=== PATIENT | female | born 1960 | race Two or more races ===

== ENCOUNTER → 2016-10-11 | Outpatient (CLI) | payer OTHER ==
--- NOTE | 2016-10-11 18:21 | RADRPT ---
PROCEDURE: Right knee radiographs. CLINICAL INDICATION: Right knee pain. TECHNIQUE: Three views. Weight bearing. Frontal, lateral, and patellar view. COMPARISON: No prior studies are available for comparison. FINDINGS: There is no fracture or dislocation. The soft tissues are normal. There are degenerative changes with medial joint compartment narrowing and osteophytes. There is no lytic or blastic lesion. There is no radiopaque foreign body. IMPRESSION: 1. Moderate degenerative changes of the right knee. RPTAT: QQ .Chapin Causey MD, MD Date Time Electronically viewed and signed by .Chapin Causey MD, MD on 10/11/2016 18:21 .R/
--- NOTE | 2016-10-12 07:07 | HKNOTE ---
DATE OF SERVICE: 10/11/2016 MAIN COMPLAINT: Pain in the right knee. HISTORY OF MAIN COMPLAINT: The patient is a 56-year-old female who injured her right knee when she fell onto the ground while walking her dog in July of this year. She was able to get up with some help. The next day, the pain was much better, but since then the pain has persisted and has become worse. The patient had fairly extensive physical therapy which helped "a bit." She had a cortisone injection into the knee 4 weeks ago which did not improve the knee at all. The patient has had some pain in the right knee for the past 4 years. This has become very much wor se since the recent fall. About 3 years ago, she had pain in the right knee for which she was given a cortisone injection, and she had no further pain in the knee since then. PRESENT COMPLAINTS: The right knee swells, locks, and feels unstable. The instability occurs at le ast 3 times a day. The knee locks at least 3 or 4 times a day. The pain is described as moderate t o severe and is aggravated by walking, weightbearing, and stair climbing. She does get rest pain an d night pain. She has been applying ice, she is taking Vicodin, physical therapy. Also had a jose isone injection. None of this has helped her very much. She has a long history of problems with her lower back. She has had physical therapy and cortisone injections into the back. She gets numbness and tingling in her legs. On a flat level surface, she can walk for about 10 minutes. She uses a cane in house at all times and a walker outside of the h ouse at all times. She limps all the time. Leg lengths feel equal. She does not have a shoe lift. She cannot clip her toenails and tie her shoelaces on the right side. PAST ORTHOPEDIC HISTORY: Problems with the right knee as shown above. No orthopedic operations. PRIOR CORTISONE INTAKE: The patient had injection of cortisone into the right knee 3 years ago. Th is gave her complete relief of her pain. ALCOHOL INTAKE: None. OTHER JOINT PROBLEMS: None. BLOOD TESTS FOR ARTHRITIS: Yes (? results). PRIOR INJURY TO THE HIPS OR KNEES: None. WORK STATUS: The patient works with her who owns a company involved with [employer]. PAST MEDICAL HISTORY: 1. Anemia of unknown cause (? blood from "internally"). 2. Pre-diabetic. 3. Obesity. DRUG ALLERGIES: NONE. MEDICATIONS: 1. Mi-Acid Gas 80 mg twice a day. 2. Doc-Q-Lace 100 mg twice a day. 3. Omeprazole 40 mg twice a day. 4. Tramadol 50 mg twice a day. 5. Gabapentin 300 mg twice a day for chronic pain. 6. Mapap 500 mg twice a day. 7. Vitamin D3 50,000 units a week. 8. Metformin hydrochloride 500 mg twice a day. 9. Calcium 600 mg daily. 10. Ferrous sulfate 325 mg daily. 11. Voltaren gel 100 g as needed on skin for knee pain. PAST SURGICAL HISTORY: Right kidney removed in 1978. FAMILY HISTORY: Father at 76 of diabetes and mother at 66 of diabetes. REVIEW OF SYSTEMS: Prone to heartburn, varicose veins, tingling sensations in feet, numbness in bot h feet, gait disturbance from the right knee. Pre-diabetic, occasional double vision, ankles swell from time to time, hemorrhoids. Habitual constipation. HABITS: The patient does not smoke or drink alcoholic beverages. [facility]: [facility], [address], [address], [place] [address] REFERRING PHYSICIAN: SHAKIRA Louis PHYSICAL EXAMINATION: GENERAL: The patient is an overweight 56-year-old female. She walks with a walker. She has a cherelle ed antalgic gait. VITAL SIGNS: Height 5 feet 2 inches, weight 190 pounds, blood pressure 125/60, temperature 98.4. HIPS: Both hips have a full range of motion without pain. RIGHT KNEE: The right knee shows normal alignment. Active and passive extension lacks 5 degrees (ma rkedly painful). Active and passive flexion lacks 15 degrees (markedly painful). The medial and late ral collateral ligaments and cruciate ligaments are intact. Bakari test is negative. There is 2+ ef fusion, marked tenderness over the medial joint line. There is no scarring, crepitus, or cysts. The patella tracks normally. There is no tenderness on the articular surface of the patella or in the p atellar groove. The Q angle is normal. LEFT KNEE: The left knee shows normal alignment. Active and passive extension is 0 degrees. Active and passive flexion is 135 degrees. The medial and lateral collateral ligaments and cruciate ligamen ts are intact. Bakari test is negative. There is no effusion, tenderness, scarring, crepitus, or cy sts. The patella tracks normally. There is no tenderness on the articular surface of the patella or in the patellar groove. The Q angle is normal. IMAGING: Plain x-rays of the right knee obtained at the [facility] today were re viewed (3 views). These show moderate narrowing of the medial joint space. An MRI scan of the right knee obtained on 09/18/[address] Antione Schrader as showing unsta ble radial tear of the root attachment of the posterior horn of the medial meniscus, moderate patell ofemoral arthrosis, synovitis and joint effusion. DIAGNOSES: 1. Internal derangement of the right knee (torn medial meniscus). 2. Degenerative osteoarthritis of the right knee. MANAGEMENT: The patient advised that she will need to have an operative arthroscopy. The procedure and some of the major possible complications were discussed with her with her daughter acting as an recreational facilities motel manager. The patient understands very little [place]. FINAL DIAGNOSES: 1. Internal derangement of the right knee. 2. Anemia of unstated unknown cause (possibly internal bleeding ?). 3. Pre-diabetic. 4. Obesity. 5. Acid reflux and chronic dyspepsia. 6. Diabetic. The operation of knee arthroscopy was discussed with the patient and her daughter in a fair amount o f detail including some of the major possible complications. Postoperative course was discussed wit h them. Authorization is being requested to proceed with an operative arthroscopy on the right knee. I would feel more comfortable operating on this patient if we had a better handle on why she has chr onic anemia. Dictated By: SUNDEEP LANDA/LEONEL Conf#: [id number] DID#: [id number]
== END | disposition home or self-care (01) ==
LOC: HKI 15:18
DX: M25.561 Pain in right knee (principal); M23.91 Unspecified internal derangement of right knee; D64.9 Anemia, unspecified; E66.9 Obesity, unspecified; E11.9 Type 2 diabetes mellitus without complications
CPT/HCPCS: 73562; Z7500; G0463

== ENCOUNTER → 2016-11-17 | Outpatient (CLI) | payer OTHER ==
[~2016-11-17] MED LIST: CALC600T5 PO; DICL100G37 TOP; FER325 PO; GABA300C16 PO; METF500T4 PO; SIMV5TAB50 PO; VIT1TABL85 PO
== END | disposition home or self-care (01) ==
LOC: HKI 14:28
DX: Z01.818 Encounter for other preprocedural examination (principal)
CPT/HCPCS: G0463

== ENCOUNTER 2016-11-18 06:13 | Day surgery (SDC) | payer OTHER ==
[2016-11-17 09:52] VITALS: BMI 36.2
[~2016-11-18] VITALS: Ht 162.6 cm; Wt 89.9 kg
[2016-11-18] VITALS (12 sets, daily range): BP systolic 107–140; BP diastolic 58–74; PULSE 54–79; RESP 13–22; Ht 162.6 cm; Wt 89.9 kg
[2016-11-18] MEDS ORDERED: MIDAZOLAM 1 MG/ML 2 ML INJ ONE (06:49)
[2016-11-18] MEDS ORDERED: ROCURONIUM 50 MG INJ ONE (06:49)
[2016-11-18] MEDS ORDERED: PROPOFOL 20 ML ONE (06:49)
[2016-11-18] MEDS ORDERED: GLYCOPYRROLATE 0.4 MG INJ ONE (06:49)
[2016-11-18] MEDS ORDERED: LIDOCAINE 2% (SDV) 5 ML INJ ONE (06:49)
[2016-11-18] MEDS ORDERED: NEOSTIGMINE 3 MG/3 ML SYRINGE ONE (06:49)
[2016-11-18] MEDS ORDERED: FENTAnyl 50 MCG/ML VIAL ONE (06:49)
[2016-11-18] MEDS ORDERED: DEXAMETHASONE 4 MG/ML 1 ML INJ ONE (06:50)
[2016-11-18] MEDS ORDERED: SUCCINYLCHOLINE CHLORIDE 100 MG/5 ML SYG IV ONE (06:50)
[2016-11-18] MEDS ORDERED: ONDANSETRON 4 MG INJ ONE (06:50)
[2016-11-18] MEDS ORDERED: EPHEDrine SULFATE 50 MG/5 ML SYG IV PRN (07:00)
[2016-11-18] MEDS ORDERED: LABETALOL HCL 20MG INJ IV PRN (07:00)
[2016-11-18] MEDS ORDERED: FENTAnyl 50 MCG/ML VIAL IV PRN ×2 (07:00)
[2016-11-18] MEDS ORDERED: ONDANSETRON 4 MG INJ IV PRN ×2 (07:00→10:00)
[2016-11-18] MEDS ORDERED: DIPHENHYDRAMINE 50 MG INJ IV PRN (07:00)
[2016-11-18] MEDS ORDERED: hydrALAzine 20 MG INJ IV PRN (07:00)
[2016-11-18] MEDS ORDERED: morphine (1 MG/ML) 10ML SYRINGE IV PRN ×3 (07:00)
[2016-11-18] MEDS ORDERED: MIDAZOLAM 1 MG/ML 2 ML INJ IV PRN (07:00)
[2016-11-18] MEDS ORDERED: MEPERIDINE 25 MG INJ IV PRN (07:00)
[2016-11-18] MEDS ORDERED: ATROPINE 1 MG/10 ML SYRINGE IV PRN (07:00)
[2016-11-18] MEDS ORDERED: OXYCODONE/ACETAMINOPHEN (5/325) TAB PO PRN ×2 (07:00)
[2016-11-18] MEDS ORDERED: HYDROmorphONE (0.2 MG/ML) 10ML SYG IV PRN ×2 (07:00)
[2016-11-18] MEDS ORDERED: LANSOPRAZOLE 30 MG CAP PO ONE (07:30)
[2016-11-18] MEDS ORDERED: oxyCODONE (CR) 10 MG TAB [oxyCONTIN] PO ONE (07:30)
[2016-11-18] MEDS ORDERED: VANCOMYCIN 1 GM (PMX) 250 ML IVPB ONE (07:30)
[2016-11-18] MEDS ORDERED: LACTATED RINGER'S 1,000 ML IV* SCH (07:30)
[2016-11-18] MEDS ORDERED: ONDANSETRON 4 MG INJ IV ONE (07:30)
[2016-11-18] MEDS ORDERED: CELECOXIB 200 MG CAP PO ONE (07:30)
[2016-11-18] MEDS ORDERED: DEXAMETHASONE 4 MG/ML 1 ML INJ IV ONE (07:30)
[2016-11-18] MEDS ORDERED: ACETAMINOPHEN 1000MG/100ML IV 100 ML IVPB ONE ×2 (07:30→10:00)
--- NOTE | 2016-11-18 07:31 | HPN ---
Date/Time of Note Date/Time of Note DATE: 11/18/16 TIME: 07:31 Interval H&P Admission Note Pt. seen H&P reviewed: No system changes JOCE NORTON PA-C Nov 18, 2016 07:31
[2016-11-18] MEDS ORDERED: SIMV5TAB50 PO (07:41)
[2016-11-18] MEDS ORDERED: FER325 PO (07:41)
[2016-11-18] MEDS ORDERED: VIT1TABL85 PO (07:41)
[2016-11-18] MEDS ORDERED: CALC600T5 PO (07:41)
[2016-11-18] MEDS ORDERED: GABA300C16 PO (07:41)
[2016-11-18] MEDS ORDERED: DICL100G37 TOP (07:41)
[2016-11-18] MEDS ORDERED: METF500T4 PO (07:41)
[2016-11-18] MEDS ORDERED: ROPIVACAINE 0.5 % 30 ML VIAL ONE ×2 (07:50→08:43)
[2016-11-18] MEDS ORDERED: BUPIVACAINE 0.25%/EPI (SDV) 30 ML INJ ONE (07:51)
[2016-11-18] MEDS ORDERED: KETOROLAC 30 MG INJ ONE (07:51)
[2016-11-18] MEDS ORDERED: morphine SULFATE/PF (10 MG/10 ML) INJ ONE (07:51)
[2016-11-18] MEDS: HYDROmorphONE (0.2 MG/ML) 10ML SYG IV PRN ×2 (09:53→09:58)
[2016-11-18] MEDS ORDERED: HYDROCODONE/APAP (10/325) TAB PO PRN (10:00)
[2016-11-18] MEDS ORDERED: HYDROCODONE/APAP (5/325) TAB PO PRN (10:00)
[2016-11-18] MEDS ORDERED: morphine 10 MG INJ IV PRN (10:00)
--- NOTE | 2016-12-21 01:08 | OPR ---
DATE OF OPERATION: 11/18/2016 SURGEON: Donis Davey MD RADIOACTIVITY TECHNICIAN: ANESTHESIOLOGIST: MD PREOPERATIVE DIAGNOSIS: Torn medial meniscus of the right knee. POSTOPERATIVE DIAGNOSES: 1. Torn medial meniscus of the right knee. 2. Extensive degenerative changes throughout the medial compartment and patellofemoral joint, as well as the lateral tibial plateau and to a lesser extent the lateral femoral condyle. OPERATION PERFORMED: 1. Diagnostic arthroscopy. 2. Partial medial meniscectomy. DISCUSSION: This surgery was performed on 11/18/2016. Today's date is 12/20/2016. The hospital client services account manager broke down because (as we were told) the system had been hacked and was on usable for at least 50 percent of hospitals in the country. This report is now being dictated from memory a month later. OPERATIVE FINDINGS AT SURGERY: As noted above. There were grade III and grade IV degenerative changes throughout almost the entire knee, except for the lateral femoral condyle. The cruciate ligaments were intact. The lateral meniscus was intact. The lateral femoral condyle was about the most normal-looking articular surface in the knee. DESCRIPTION OF PROCEDURE: Under general anesthetic, the right knee was prepared and draped in the usual sterile fashion. The knee was systematically inspected and the above findings were noted. Using a variety of basket forceps and a motorized intra-articular shaver, a partial medial meniscectomy was performed. Wide ablation was performed on the medial femoral condyle and the tibial plateau using the Plasma wand. Unstable articular cartilage in the lateral compartment was treated in a similar fashion. At the end the of the procedure, the knee was copiously irrigated to remove all contained fragments. The wounds were closed using interrupted nylon. The knee was then injected with a mixture of Duramorph and Naropin. The usual sterile dressings were applied. The patient was returned to the recovery room in stable condition. DISCUSSION: This knee was extensively affected with degenerative changes. She almost certainly will need to come to a full knee replacement in the relatively near future. Dictated By: Donis Davey MD /jayson/rani /Document#: [id number]
== END 2016-11-18 12:05 | disposition home or self-care (01) ==
LOC: SDS 06:13
DX: S83.512D Sprain of anterior cruciate ligament of left knee, subsequent encounter (principal); X58.XXXD Exposure to other specified factors, subsequent encounter; E11.9 Type 2 diabetes mellitus without complications
CPT/HCPCS: 29881; 29888; 82962; J0131; J1100; J1170; J1885; J2250; J2274; J2405; J2710; J2795; J3010; J3370; J7120; Z7512; Z7610; J7999

== ENCOUNTER → 2016-11-23 | Outpatient (CLI) | payer OTHER ==
--- NOTE | 2016-11-23 14:54 | PN ---
Date/Time of Note Date/Time of Note DATE: 11/23/16 TIME: 14:49 Outpatient Progress Note Chief Complaint Follow-up status post arthroscopy HPI 56-year-old female presents today for postoperative examination status post right knee arthroscopy with partial medial and lateral meniscectomy performed on 11/18/2016. Continues with aches and pains to the right knee that she rates at about 4-5/10 on the pain scale. Has some stiffness with flexion. Denies any complications with the wound. Presents today for follow-up. Denies any chest pain/tightness. No shortness of breath. No significant calf pain. Review of Systems Const: No Fever, no chills, no Fatigue, normal appetite, no diaphoresis. Resp: No SOB, no wheezing, no chest pain. CV: No chest pain, no palpitaions, no DOUGLAS. Physical Exam Blood pressure is 125/60, temperature is 98.1, pulse of 71, respiratory rate is 12, height is 5 foot 4 inches, weight is 190 pounds General Appearance: well-developed, well-nourished, in no acute distress. Right knee: Wounds are clean dry and intact. Sutures intact with no signs of infection. Patient is flexing at about 90. Near full range of motion on extension. Mild tenderness to palpation to the right knee. Negative Homans sign. Normal sensory examination to light touch. Assisted ambulation with front wheeled walker. Allergies Coded Allergies: No Known Allergy (Unverified , 11/18/16) Assessment/Plan * Pictures were discussed and shown to the patient. A copy was provided to the patient. Her daughter was present today who is translating today's visit. * Dr. Davey was present during examination today and also reveals that significant arthritis that was not as obvious on x-ray was visualized during arthroscopic procedure. Likely, patient will need total knee replacement per recommendation from Dr. Davey. * Dress change performed today * Prescription for physical therapy given today * Follow-up 1 week for suture removal as well as repeat discussion with Dr. Davey regarding total knee arthroplasty. * No signs of DVT on exam today. Patient and patient's daughter were made aware however, should she experience any chest pain/tightness, shortness of breath or significant aching/calf pain to follow-up in emergency room as soon as possible and they state understanding. Dr. Davey was present for examination today and agrees with plan. Medications Home Meds Reported Medications Diclofenac Sodium* (Voltaren* Gel) 1% -100 Gm Gel, 2 GM TOP TID, #1 TUB 11/18/16 Calcium Carbonate (CALCIUM) 600 Mg Tablet, 600 MG PO, TAB 11/18/16 Ferrous Sulfate* (Ferrous Sulfate*) 325 Mg Tabec, 325 MG PO DAILY, TAB 11/18/16 Vit D3/Folic Acid/B2/B6/B12 (Folgard Tablet) 1 Each Tablet, 1 TAB PO DAILY, TAB 11/18/16 Gabapentin* (Gabapentin*) 300 Mg Capsule, 300 MG PO BID, #60 CAP 11/18/16 Simvastatin* (Simvastatin*) 5 Mg Tablet, 10 MG PO QHS, #30 TAB 11/18/16 Metformin Hcl* (Metformin Hcl*) 500 Mg Tablet, 500 MG PO WITH MEALS, #90 TAB 11/18/16 JOCE NORTON PA-C Nov 23, 2016 14:53
== END | disposition home or self-care (01) ==
LOC: HKI 14:09
DX: Z47.1 Aftercare following joint replacement surgery (principal); Z96.651 Presence of right artificial knee joint; M17.11 Unilateral primary osteoarthritis, right knee

== ENCOUNTER → 2016-11-30 | Outpatient (CLI) | payer OTHER ==
--- NOTE | 2016-11-30 15:18 | PN ---
Date/Time of Note Date/Time of Note DATE: 11/30/16 TIME: 15:13 Outpatient Progress Note Chief Complaint Follow-up status post right knee arthroscopy with partial medial/lateral meniscectomy HPI 56-year-old female presents today for right knee arthroscopy status post partial medial/lateral meniscectomy. Patient was seen last week and had pain complaints of the right knee. Since she was last seen, she states that pain has improved although she continues with aching that is around 3-4/10 on the pain scale to the distal medial compartment of the right knee. Denies any complications with the wound. Patient is ambulatory but using walker. No falls or injury. Denies any calf pain. Denies any chest pain/tightness. Has yet to initiate physical therapy. Review of Systems Const: No Fever, no chills, no Fatigue, normal appetite, no diaphoresis. Resp: No SOB, no wheezing, no chest pain. CV: No chest pain, no palpitaions, no DOUGLAS. Physical Exam Blood pressure is 120/61, temperature is 98.2, pulse 62, respiratory rate is 12 , height is 5 foot 4 inches, weight is 190 pounds General Appearance: well-developed, well-nourished, in no acute distress. Right knee: Sutures are clean dry and intact. No complications with wound on inspection. No tenderness to palpation. Patient does have discomfort on palpation however to the medial compartment more distal of the right knee. Patient is flexing up to 120 with about 5 lag from full extension. Assisted ambulation using walker. Negative Homans sign. Normal sensory examination to light touch. Allergies Coded Allergies: No Known Allergy (Unverified , 11/18/16) Assessment/Plan * Suture removal performed today. Steri-Strips applied. * Continue with pain medications as needed. Advised to take pain medication prior to initiating physical therapy in which she has her first session later this afternoon. * Continue at home exercise as well. * At this stage, patient may follow-up on as-needed basis but patient and patient's daughter (who is translating today's visit) were made aware that should she have any limitations or significant discomfort within the first 4-6 weeks, she may follow-up for repeat evaluation for monitoring. * Follow-up as needed Medications Home Meds Reported Medications Diclofenac Sodium* (Voltaren* Gel) 1% -100 Gm Gel, 2 GM TOP TID, #1 TUB 11/18/16 Calcium Carbonate (CALCIUM) 600 Mg Tablet, 600 MG PO, TAB 11/18/16 Ferrous Sulfate* (Ferrous Sulfate*) 325 Mg Tabec, 325 MG PO DAILY, TAB 11/18/16 Vit D3/Folic Acid/B2/B6/B12 (Folgard Tablet) 1 Each Tablet, 1 TAB PO DAILY, TAB 11/18/16 Gabapentin* (Gabapentin*) 300 Mg Capsule, 300 MG PO BID, #60 CAP 11/18/16 Simvastatin* (Simvastatin*) 5 Mg Tablet, 10 MG PO QHS, #30 TAB 11/18/16 Metformin Hcl* (Metformin Hcl*) 500 Mg Tablet, 500 MG PO WITH MEALS, #90 TAB 11/18/16 JOCE NORTON PA-C Nov 30, 2016 15:18
== END | disposition home or self-care (01) ==
LOC: HKI 13:52
DX: Z47.89 Encounter for other orthopedic aftercare (principal); M25.561 Pain in right knee; Z96.651 Presence of right artificial knee joint

== ENCOUNTER → 2017-02-14 | Outpatient (CLI) | payer OTHER ==
--- NOTE | 2017-02-14 11:08 | PN ---
Date/Time of Note Date/Time of Note DATE: 02/14/17 TIME: 11:01 Outpatient Progress Note Chief Complaint Follow-up status post arthroscopy HPI 56-year-old female presents today for follow-up regarding right knee pain status post arthroscopic surgery with partial medial meniscectomy performed on . Patient was doing well and improving until she initiated physical therapy at facility that was designated by insurance. Patient states that she had 3 sessions and each session made her pain significantly worse. She has ongoing pain and feels that she has development of a "ball" to the back of her knee. She continues with ongoing pain especially with weightbearing that can reach a 9-10/10 on the pain scale. She feels that her functionality has decreased after starting without physical therapy. She has been paying out of pocket at a new physical therapy facility for about 1-2 sessions in which she has noticed an improvement again. Presents today for repeat evaluation as she has concernsAs she does not lead a very active lifestyle which would create significant pain with activity. She states that she is consistent with home exercise and supportive measures such as anti-inflammatories and ice modalities but she feels that physical therapy at this designated place that was provided by her insurance has made her complaints significantly worse. Review of Systems Const: No Fever, no chills, no Fatigue, normal appetite, no diaphoresis. Resp: No SOB, no wheezing, no chest pain. CV: No chest pain, no palpitaions, no DOUGLAS. Physical Exam Blood pressure is 124/57, temperature is 98.2, pulse is 72, respiratory rate is 12, height is 5 foot 4 inches, weight is 192 pounds General Appearance: well-developed, well-nourished, in no acute distress. Right knee: Well-healed surgical scar from previous arthroscopic surgery. 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 No pain is reproduced on palpation. Patient is able to fully extend and is able to flex the knee up to 90. On previous examinations patient has been able to flex up to 100 so there has been a decrease in range of motion. Tenderness to palpation mild to moderate along the medial compartment of the knee. No palpable crepitus. Negative Charito's and Bakari's test. 5/5 strength on resistance with flexion and extension. Allergies Coded Allergies: No Known Allergy (Unverified , 11/18/16) Assessment/Plan Problems: (1) Right knee pain (2) S/P arthroscopic partial medial meniscectomy * It seems that physical therapy that was designated at the specific facility has been increasing her pain. Patient was advised to stop attending this physical therapy Facility and see if insurance will switch over physical therapy to a newly designated facility where she feels that she is getting some relief and improvement in functionality. * At home exercises were also encouraged * Recommend cortisone injection and patient also is in agreement. 2 cc of 40 mg per male Kenalog along with 6 cc of 0.25% Marcaine using 25-gauge needle was injected into the knee. Prior to injection, the area was cleaned/sterilized with Betadine swab. Patient was observed for 3-5 minutes prior to discharge. * Patient education was provided for the patient today as well as information on Tabares's cyst. * Follow-up as needed Medications Home Meds Reported Medications Diclofenac Sodium* (Voltaren* Gel) 1% -100 Gm Gel, 2 GM TOP TID, #1 TUB 11/18/16 Calcium Carbonate (CALCIUM) 600 Mg Tablet, 600 MG PO, TAB 11/18/16 Ferrous Sulfate* (Ferrous Sulfate*) 325 Mg Tabec, 325 MG PO DAILY, TAB 11/18/16 Vit D3/Folic Acid/B2/B6/B12 (Folgard Tablet) 1 Each Tablet, 1 TAB PO DAILY, TAB 11/18/16 Gabapentin* (Gabapentin*) 300 Mg Capsule, 300 MG PO BID, #60 CAP 11/18/16 Simvastatin* (Simvastatin*) 5 Mg Tablet, 10 MG PO QHS, #30 TAB 11/18/16 Metformin Hcl* (Metformin Hcl*) 500 Mg Tablet, 500 MG PO WITH MEALS, #90 TAB 11/18/16 JOCE NORTON PA-C Feb 14, 2017 11:08
== END | disposition home or self-care (01) ==
LOC: HKI 10:09
DX: M25.561 Pain in right knee (principal); S83.241D Other tear of medial meniscus, current injury, right knee, subsequent encounter
CPT/HCPCS: 20610; Z7500; Z7610; G0463

== ENCOUNTER → 2017-10-06 | Outpatient (CLI) | END | disposition home or self-care (01) ==

== ENCOUNTER → 2017-10-30 | Outpatient (CLI) | END | disposition home or self-care (01) ==

== ENCOUNTER 2017-11-06 09:00 | Day surgery (SDC) | END 2017-11-06 16:30 | disposition home or self-care (01) ==

== ENCOUNTER → 2017-11-13 | Outpatient (CLI) | END | disposition home or self-care (01) ==